=== PATIENT | female | born 2000 | race Caucasian/White ===

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

== ENCOUNTER 2021-02-21 18:26 | Emergency (ER) | payer BC, MEDICAID ==
--- NOTE | 2021-02-21 19:00 | XRAY Report ---
PROCEDURE: Hand 3 View RT INDICATIONS: Trauma TECHNIQUE: 3 views of the hand(s) acquired. COMPARISON: None FINDINGS: Bones: No fractures or dislocations. No suspicious bony lesions. Soft tissues: Generalized soft tissue swelling noted. IMPRESSION: Soft tissue swelling without fracture or foreign body Reviewed by: Samuel Felipe MD on 02/21/2021 5:59 PM AKDT Approved by: Samuel Felipe MD on 02/21/2021 5:59 PM AKDT Station ID: [id number]
[2021-02-21] MEDS: ACETAMINOPHEN 325 MG TABLET PO STA (19:40)
[2021-02-21 19:44] VITALS: BP 124/62
--- NOTE | 2021-02-21 19:58 | ED Physician Documentation ---
PD HPI UPPER EXT INJURY - Stated complaint Stated Complaint: RIGHT HAND INJURY - Chief complaint Chief Complaint: Trauma Ext - History obtained from History obtained from: Patient, Family - History of Present Illness Location: Right, Hand Type of injury: Other (punched a wall.) Timing - duration: Hours (1) Timing - details: Abrupt onset Pain level max: 5 Pain level now: 5 Worsened by: Moving, Palpating Associated symptoms: No: Weakness, Numbness, Tingling Contributing factors: No: Anticoagulated - Additonal information Additional information: 21-year-old female states that she punched a wall today. She is complaining of pain to the right hand, mainly at the fifth metacarpal. States she has swelling and bruising. Patient is right-handed. Worse with movement, better with rest. She has 22 weeks . Denies any other injuries. Review of Systems Constitutional: denies: Fever, Chills GI: denies: Vomiting, Diarrhea : denies: Vaginal bleeding Neurologic: denies: Headache PD PAST MEDICAL HISTORY - Past Medical History Past Medical History: No - Past Surgical History Past Surgical History: No - Present Medications Home Medications: Ambulatory Orders Medication Instructions Recorded Confirmed Pnv No.95/Ferrous Fum/Folic AC 1 each PO DAILY 02/21/21 02/21/21 [ Tablet] - Allergies Allergies/Adverse Reactions: Allergies Allergy/AdvReac Type Severity Reaction Status Date / Time amoxicillin Allergy Rash Verified 02/21/21 18:29 azithromycin [From Zithromax] Allergy Rash Verified 02/21/21 18:29 Penicillins Allergy Rash Verified 02/21/21 18:29 - Social History Does the pt smoke?: No Smoking Status: Never smoker Does the pt drink ETOH?: No Does the pt have substance abuse?: No - Immunizations Immunizations are current?: Yes PD ED PE NORMAL - Vitals Vital signs reviewed: Yes - General General: Alert and oriented X 3, No acute distress - HEENT HEENT: Moist mucous membranes - Cardiac Cardiac: RRR - Respiratory Respiratory: No respiratory distress, Clear bilaterally - Abdomen Abdomen: Soft, Non tender, Other (gravid) - Derm Derm: Warm and dry - Extremities Extremities: Other (Tender to palpation over the right hand, fourth and fifth metacarpals. Mild swelling. Full range of motion. Neurovascular intact. Otherwise normal exam of the hand and wrist) - Neuro Neuro: Alert and oriented X 3 - Psych Psych: Normal mood, Normal affect Results - Vitals Vitals: Oxygen O2 Source Room air - Rads (name of study) Right hand x-ray Radiology: Final report received, EMP read contemporaneously, See rad report (No acute abnormality) PD MEDICAL DECISION MAKING - ED course Complexity details: reviewed results, re-evaluated patient, considered differential, d/w patient ED course: No acute findings on x-ray. Symptoms consistent with a hand contusion. Declines a splint. Her vital signs improved as she calmed herself down in the emergency department. We will have her follow-up with her doctor for further checks. There is no evidence of injury to the fetus at this time. heart rate 150. Patient counseled regarding signs and symptoms for which I believe and urgent re-evaluation would be necessary. Patient with good understanding of and agreement to plan and is comfortable going home at this time This document was made in part using voice recognition software. While efforts are made to proofread this document, sound alike and grammatical errors may occur. Departure - Departure Disposition: 01 Home, Self Care Clinical Impression: Hand contusion Qualifiers: Encounter type: initial encounter Laterality: right Qualified Code(s): S60.221A - Contusion of right hand, initial encounter Condition: Good Instructions: ED Contusion Hand Follow-Up: Provider,Other [Primary Care Provider] - Within 1 week Comments: Ankle he there are no fractures on your x-ray. You can use Tylenol as needed for pain. Return if you worsen. Discharge Date/Time: 02/21/21 20:05
== END 2021-02-21 20:05 | disposition home or self-care (01) ==
LOC: ED 18:26
DX: O9A.212 Injury, poisoning and certain other consequences of external causes complicating pregnancy, second trimester (principal); S60.221A Contusion of right hand, initial encounter; W22.01XA Walked into wall, initial encounter; Z3A.22 22 weeks gestation of pregnancy
CPT/HCPCS: 73130; 99282; 99283; A9270

== ENCOUNTER 2021-07-10 04:49 | Inpatient (IN) | payer BC, MEDICAID ==
[2021-07-10] MEDS ORDERED: TERBUTALINE 1 MG/ML VIAL SUBQ PRN ×2 (04:52→05:46)
[2021-07-10] MEDS ORDERED: fentaNYL 100 MCG/2 ML VIAL IVP PRN ×2 (04:52→05:46)
[2021-07-10] MEDS ORDERED: SODIUM CHLORIDE FLUSH 0.9% 10 ML SYRINGE IVP PRN ×2 (04:52→05:46)
[2021-07-10] MEDS ORDERED: CARBOPROST TROMETHAMINE 250 MCG/ML AMP IM PRN ×2 (04:52→05:46)
[2021-07-10] MEDS ORDERED: LIDOCAINE-MPF 1% 30 ML VIAL ID PRN ×2 (04:52→05:46)
[2021-07-10] MEDS ORDERED: OXYTOCIN/SODIUM CHLORIDE 500 ML IV PRN ×2 (04:52→05:46)
[2021-07-10] MEDS ORDERED: OXYTOCIN 10 UNIT/ML VIAL IM PRN ×2 (04:52→05:46)
[2021-07-10] MEDS ORDERED: METHYLERGONOVINE 0.2 MG/ML VIAL IM PRN ×2 (04:52→05:46)
[2021-07-10] MEDS ORDERED: TRANEXAMIC ACID IN NACL 1,000 MG/100 ML BAG IV PRN ×2 (04:52→05:46)
[2021-07-10] MEDS ORDERED: LACTATED RINGERS 500 ML IV ONE (04:52)
[2021-07-10] MEDS ORDERED: miSOPROStoL 200 MCG TABLET BC ONE (04:52)
[2021-07-10] MEDS ORDERED: miSOPROStoL 200 MCG TABLET PR ONE (04:52)
[2021-07-10] MEDS ORDERED: SODIUM CHLORIDE FLUSH 0.9% 10 ML SYRINGE IVP SCH (05:00)
[2021-07-10] MEDS ORDERED: AMPICILLIN 1 GM in SODIUM CHLORIDE 0.9% MINIBAG 100 ML IV SCH (05:00)
[2021-07-10] MEDS ORDERED: LACTATED RINGERS 1,000 ML IV SCH ×2 (05:00→06:00)
[2021-07-10] MEDS ORDERED: miSOPROStoL 200 MCG TABLET BC PRN (05:46)
[2021-07-10] MEDS ORDERED: miSOPROStoL 200 MCG TABLET PR PRN (05:46)
[2021-07-10] MEDS ORDERED: ONDANSETRON ODT 4 MG TABLET PO PRN (05:46)
[2021-07-10] MEDS ORDERED: METOCLOPRAMIDE 10 MG TABLET PO PRN (05:46)
[2021-07-10] MEDS ORDERED: METOCLOPRAMIDE 10 MG/2 ML VIAL IVP PRN ×2 (05:46→07:07)
[2021-07-10] MEDS ORDERED: LACTATED RINGERS 1,000 ML ONE (05:51)
--- NOTE | 2021-07-10 05:55 | HISTORY & PHYSICAL EXAMINATION ---
Admit History - Visit Reason Visit Reason: Other (Labor and desires pain management) - : 1 Parity: 0 Smoking Status: Never smoker - Mother's Labs Mother's Blood Type: positive: A Mother's RH: positive: Positive GBS: positive: Group B Strep Positive Rubella Status: positive: Non-immune - Other Maternal History Other Maternal History: ID: Patient is a 21 yo at 41+4 wga by 6 week us here as a transfer from [facility]. HPI: Patient reports having painful contractions since 07/07/21. She has becomemore active this morning and progressed to 5/C/-2 per LM exam. has been complicated only by BMI>40 and hx of GAS pharyngitis on 06/15/21. She is GBS positive and reports a history of PCN allergy. She has had one dose of cefazolin prior to transfer. She is having difficulty managing pain and desires epidural. Emotional distress/anxiety. Reports back pain. Records from [facility] showed mildly elevated blood pressures in the 140s/80s Active labor noted at 07/10/21 at 1:07 am. Has had prodromal labor since 07/07/21. COVD testing 06/15/21 for pharyngitis, positive for GAS and treated with clindamycin First OB visit with Dr. Emery 12/24/20 indicated narrow pelvic and possibility of as discussed PNC DATING: LMP unknown US on 11/04/20 at 6w1d gives BÁRBARA 06/29/21 A pos/ Rub NON-IMMUNE Ab neg VZV NON-IMMUNE H/H 14.2/41.9 HIV neg Rub NI RPR NR GENETICS: NIPT 46 XX HbA1c 5.6% TSH 3.40 HepBsAg neg HepC Ab neg GCCT neg/neg FAS posterior, EFW 66%ile, 3VC, FAS wnl glucola 91 GBS positive (No comment on TDAP in records) PMH: depression/anxiety BMI> 40 (270# on 11/28/20, Ht 5'7" PSH: none SOC HX: Lives in [place] with partner Homemaker GED with some college FOB [place] T: vape in early E: prior to D: none FH: Father: 2/2 heart failure; EtOH abuse Mother: Maria T's thyroiditis, GDM, HTN GM: family estrangement GM: addiction PGF: estranged MGF: estranged ROS: As per HPI, otherwise remaining systems are negative PE: VS: 97.9 136 143/85 22 GEN: Marked discomfort with contractions HEENT: NCAT CV: tachycardic RESP: nl effort ABD: Gravid, non-tender PSYCH: high anxiety, emotionally labile NEURO: alert and oriented EFM: 145 mod shraddha 15x15 accels no decels TOCO:Q3-5 min A/P: 21 yo at 41+4 wga here as TAZ from [facility] for pain management PAIN: Desires epidural -Placing IV for fluid bolus and labs -FRUIT DISTRIBUTOR aware and will place LEP once bolus and labs completed FWB: Vertex by LM report, well grown, Cat I tracing. GBS positive -Continuing cefazolin for GBS ppx given PCN allergy GHTN: Mild range blood pressures -Obtaining PIH labs -Treat with severe range pressures -Magnesium for severe features In-patient care Meds/Allgy - Home Medications Home Medications: Ambulatory Orders Medication Instructions Recorded Confirmed Pnv No.95/Ferrous Fum/Folic AC 1 each PO DAILY 02/21/21 02/21/21 [ Tablet] - Allergies Allergies/Adverse Reactions: Allergies Allergy/AdvReac Type Severity Reaction Status Date / Time amoxicillin Allergy Rash Verified 07/10/21 06:14 azithromycin [From Zithromax] Allergy Rash Verified 07/10/21 06:14 Penicillins Allergy Rash Verified 07/10/21 06:14
[2021-07-10] MEDS ORDERED: ceFAZolin 3 GM in SODIUM CHLORIDE 0.9% 100ML 100 ML IV SCH (06:00)
[2021-07-10] MEDS ORDERED: SODIUM CHLORIDE 0.9% IV SCH (06:00)
[2021-07-10] MEDS ORDERED: CEFAZOLIN IV SCH (06:00)
[2021-07-10 06:03] LABS: BASOPHILS % (AUTO) 0.2 %; EOSINOPHILS % (AUTO) 0.2 %; HCT - HEMATOCRIT 37.2 % (37.0-47.0); HGB - HEMOGLOBIN 12.6 g/dL (12.0-16.0); LYMPHOCYTES # (AUTO) 1.7 10^3/uL (1.5-3.5); LYMPHOCYTES % (AUTO) 13.9 %; MEAN CORPUSCULAR HEMOGLOBIN 26.9 pg (27.0-31.0); MEAN CORPUSCULAR HGB CONC 33.9 g/dL (32.0-36.0); MEAN CORPUSCULAR VOLUME 79.5 fL (81.0-99.0); MEAN PLATELET VOLUME 11.1 fL (7.9-10.8); MONOCYTES % (AUTO) 7.9 %; NEUTROPHILS # (AUTO) 9.6 10^3/uL (1.5-6.6); NEUTROPHILS % (AUTO) 77.3 %; PLT - PLATELET COUNT 204 10^3/uL (130-450); RED BLOOD COUNT 4.68 10^6/uL (4.20-5.40); RED CELL DISTRIBUTION WIDTH 13.3 % (12.0-15.0); WHITE BLOOD COUNT 12.4 x10^3/uL (4.8-10.8)
[2021-07-10] MEDS ORDERED: ACETAMINOPHEN 500 MG TABLET PO PRN (06:07)
[2021-07-10] MEDS ORDERED: ROPIVACAINE 0.2% 200 MG/100 ML BAG EP ONE (06:12)
[2021-07-10] MEDS ORDERED: BUPIVACAINE 0.25% PF 10 ML VIAL ONE (06:12)
[2021-07-10] MEDS ORDERED: fentaNYL 100 MCG/2 ML VIAL ONE ×2 (06:12→15:18)
[2021-07-10 06:29] LABS: ALBUMIN 3.2 g/dL (3.2-5.5); ALBUMIN/GLOBULIN RATIO 0.8 (1.0-2.2); BILIRUBIN,TOTAL 0.7 mg/dL (0.2-1.0); CALCIUM 8.9 mg/dL (8.5-10.3); CREATININE 0.6 mg/dL (0.4-1.0); POTASSIUM 3.8 mmol/L (3.5-5.0); TOTAL PROTEIN 7.1 g/dL (6.7-8.2)
[2021-07-10] MEDS ORDERED: NIFEdipine 10 MG CAPSULE PO PRN (06:31)
--- NOTE | 2021-07-10 07:04 | PROVIDER PROGRESS NOTE ---
Subjective - Prog Note Date Prog Note Date: 07/10/21 Prog Note Time: 07:03 - Subjective Subjective: Epidural in place. Patient markedly more calm and comofortable Maternal BP and HR improved Cat I tracing SVE 690/-2 Suspect posterior position Objective - Vital Signs/Intake & Output Vital Signs: Vital Signs x48h Temp Pulse Resp BP 07/10/21 04:52 97.9 F 136 H 22 143/85 H - Lab Results Fish Bones: 07/10/21 05:40 07/10/21 05:48 Other Labs: Lab Results x24hrs 07/10/21 07/10/21 07/10/21 Range/Units 05:48 05:40 05:40 WBC 12.4 H (4.8-10.8) x10^3/uL RBC 4.68 (4.20-5.40) 10^6/uL Hgb 12.6 (12.0-16.0) g/dL Hct 37.2 (37.0-47.0) % MCV 79.5 L (81.0-99.0) fL MCH 26.9 L (27.0-31.0) pg MCHC 33.9 (32.0-36.0) g/dL RDW 13.3 (12.0-15.0) % Plt Count 204 (130-450) 10^3/uL MPV 11.1 H (7.9-10.8) fL Neut # (Auto) 9.6 H (1.5-6.6) 10^3/uL Lymph # (Auto) 1.7 (1.5-3.5) 10^3/uL Benson # (Auto) 1.0 (0.0-1.0) 10^3/uL Eos # (Auto) 0.0 (0.0-0.7) 10^3/uL Baso # (Auto) 0.0 (0.0-0.1) 10^3/uL Absolute Nucleated RBC 0.00 x10^3/uL Nucleated RBC % 0.0 /100WBC Sodium 134 L (135-145) mmol/L Potassium 3.8 (3.5-5.0) mmol/L Chloride 106 (101-111) mmol/L Carbon Dioxide 16 L (21-32) mmol/L Anion Gap 12.0 (6-13) BUN 7 (6-20) mg/dL Creatinine 0.6 (0.4-1.0) mg/dL Estimated GFR (MDRD) 127 (>89) Glucose 90 (70-100) mg/dL Calcium 8.9 (8.5-10.3) mg/dL Total Bilirubin 0.7 (0.2-1.0) mg/dL AST 17 (10-42) IU/L ALT 13 (10-60) IU/L Alkaline Phosphatase 138 H (42-121) IU/L Total Protein 7.1 (6.7-8.2) g/dL Albumin 3.2 (3.2-5.5) g/dL Globulin 3.9 (2.1-4.2) g/dL Albumin/Globulin Ratio 0.8 L (1.0-2.2) Blood Type A POSITIVE Antibody Screen NEGATIVE
[2021-07-10] MEDS ORDERED: ONDANSETRON 4 MG/2 ML VIAL IVP PRN (07:07)
[2021-07-10] MEDS ORDERED: diphenhydrAMINE INJ 50 MG/ML VIAL IVP PRN (07:07)
[2021-07-10] MEDS ORDERED: NALOXONE 0.4 MG/ML VIAL IVP PRN (07:07)
[2021-07-10] MEDS ORDERED: NALBUPHINE 10 MG/ML AMP IVP PRN (07:07)
[2021-07-10] MEDS ORDERED: ePHEDrine 50 MG/ML VIAL IVP PRN (07:07)
--- NOTE | 2021-07-10 07:07 | ANESTHESIA ---
Pre-Anesthesia VS, & Labs - Diagnosis active labor - Procedure labor epidural Vital Signs: Temp Pulse Resp BP Pulse Ox 36.6 C 136 H 22 143/85 H 07/10/21 04:52 07/10/21 04:52 07/10/21 04:52 07/10/21 04:52 Height: 5 ft 7 in Weight (kg): 128.367 kg Body Mass Index: 44.3 BMI Classification: Morbidly Obese - NPO >8 hours - Is Patient ?: Yes - Lab Results Current Lab Results: Laboratory Tests 07/10/21 05:48: Sodium 134 L, Potassium 3.8, Chloride 106, Carbon Dioxide 16 L, Anion Gap 12.0, BUN 7, Creatinine 0.6, Estimated GFR (MDRD) 127, Glucose 90, Sean cium 8.9, Total Bilirubin 0.7, AST 17, ALT 13, Alkaline Phosphatase 138 H, Total Protein 7.1, Albumin 3.2, Globulin 3.9, Albumin/Globulin Ratio 0.8 L 07/10/21 05:40: WBC 12.4 H, RBC 4.68, Hgb 12.6, Hct 37.2, MCV 79.5 L, MCH 26.9 L , MCHC 33.9, RDW 13.3, Plt Count 204, MPV 11.1 H, Neut # (Auto) 9.6 H, Lymph # (Auto) 1.7, Rich # (Auto) 1.0, Eos # (Auto) 0.0, Baso # (Auto) 0.0, Absolute Nucleated RBC 0.00, Nucleated RBC % 0.0 07/10/21 05:40: Blood Type A POSITIVE, Antibody Screen NEGATIVE Lab results reviewed: Yes Fish Bones: 07/10/21 05:40 07/10/21 05:48 Home Medications and Allergies Active Medications Acetaminophen (Acetaminophen 500 Mg Tablet) 1,000 mg PO Q8H PRN PRN Reason: Mild Pain Or Fever>38c(100.4f) Carboprost Tromethamine (Carboprost Tromethamine 250 Mcg/Ml Amp) 250 mcg IM ONCE PRN PRN Reason: Hemorrhage Stop: 07/11/21 05:45 Famotidine (Famotidine 20 Mg/2 Ml Vial) 20 mg IVP DAILY RADHA Fentanyl (Fentanyl 100 Mcg/2 Ml Vial) 50 mcg IVP Q1H PRN PRN Reason: Severe Pain (score 7-10) Oxytocin/Sodium Chloride (Pitocin/Sodium Chloride) 500 mls @ 999 mls/hr IV PRN PRN; Protocol PRN Reason: POST- HEMORR PREVENTION Tranexamic Acid (Tranexamic 1,000 Mg/100ml-Nacl) 1,000 mg in 100 mls @ 600 mls/hr IV Q30M PRN PRN Reason: EBL >1200mL and within 3hr Lactated Ringer's (Lr) 1,000 mls @ 100 mls/hr IV .Q10H RADHA Last Admin: 07/10/21 05:45 Dose: 100 mls/hr Documented by: Cefazolin Sodium 3 gm/ Sodium (Chloride) 100 mls @ 200 mls/hr IV ONCE RADHA Stop: 07/11/21 05:59 Last Admin: 07/10/21 06:39 Dose: 200 mls/hr Documented by: Cefazolin Sodium 1 gm/ Sodium (Chloride) 100 mls @ 200 mls/hr IV Q8H RADHA Labetalol HCl (Labetalol 20 Mg/4 Ml Syringe) 20 mg IVP ONCE PRN PRN Reason: SBP> OR = 160, DPB> OR = 110 Stop: 07/10/21 23:59 Lidocaine HCl (Lidocaine-Mpf 1% 30 Ml Vial) 30 ml ID ONCE PRN PRN Reason: PERINEAL REPAIR Stop: 07/11/21 05:46 Methylergonovine Maleate (Methylergonovine 0.2 Mg/Ml Vial) 0.2 mg IM ONCE PRN PRN Reason: Hemorrhage Stop: 07/11/21 05:45 Metoclopramide HCl (Metoclopramide 10 Mg Tablet) 5 mg PO Q6HR PRN PRN Reason: Nausea / Vomiting Metoclopramide HCl (Metoclopramide 10 Mg/2 Ml Vial) 5 mg IVP Q6HR PRN PRN Reason: Nausea / Vomiting Misoprostol (Misoprostol 200 Mcg Tablet) 600 mcg BC ONCE PRN PRN Reason: PER PHYSICIAN ORDER Stop: 07/11/21 05:45 Misoprostol (Misoprostol 200 Mcg Tablet) 800 mcg TN ONCE PRN PRN Reason: PER PHYSICIAN ORDER Stop: 07/11/21 05:45 Nifedipine (Nifedipine 10 Mg Capsule) 10 mg PO ONCE PRN PRN Reason: SBP> OR =160 OR DBP> OR =110 Stop: 07/10/21 23:59 Ondansetron HCl (Ondansetron Odt 4 Mg Tablet) 4 mg PO Q4HR PRN PRN Reason: Nausea / Vomiting Ondansetron HCl (Ondansetron 4 Mg/2 Ml Vial) 4 mg IVP PRN PRN PRN Reason: Nausea / Vomiting Oxytocin (Oxytocin 10 Unit/Ml Vial) 10 unit IM ONCE PRN PRN Reason: Step One if no IV access. Stop: 07/11/21 05:45 Sodium Chloride (Sodium Chloride Flush 0.9% 10 Ml Syringe) 10 ml IVP PRN PRN PRN Reason: NEEDED PER PROVIDER ORDERS Sodium Chloride (Sodium Chloride Flush 0.9% 10 Ml Syringe) 10 ml IVP Q8H RADHA Terbutaline Sulfate (Terbutaline 1 Mg/Ml Vial) 0.25 mg SUBQ ONCE PRN PRN Reason: Tachystole Stop: 07/11/21 05:45 Pnv No.95/Ferrous Fum/Folic AC [ Tablet] 1 each PO DAILY 02/21/21 Allergies/Adverse Reactions: Allergies Allergy/AdvReac Type Severity Reaction Status Date / Time amoxicillin Allergy Rash Verified 07/10/21 06:14 azithromycin [From Zithromax] Allergy Rash Verified 07/10/21 06:14 Penicillins Allergy Rash Verified 07/10/21 06:14 Anes History & Medical History - Anesthetic History Anesthesia Complications: reports: No previous complications Family history of Anesthesia Complications: Denies Family history of Malignant Hyperthermia: Denies - Medical History Smoking Status: Never smoker - Obstetrical History : 1 Parity: 0 Exam General: Alert, Oriented x3, Cooperative, No acute distress Dental: WNL Mouth Openin Fingerbreadth Neck Mobility: Normal Mallampati classification: I Plan Anesthesia Type: Epidural Consent for Procedure(s) Verified and Reviewed: Yes Code Status: Attempt Resuscitation ASA classification: 3-Severe systemic disease Is this case an emergency?: No
[2021-07-10] MEDS: SODIUM CHLORIDE FLUSH 0.9% 10 ML SYRINGE IVP SCH ×2 (07:53→09:00)
[2021-07-10 07:56] LABS: CREATININE,URINE 248.8 mg/dL; PROTEIN/CREATININE RATIO,URINE 0.3 (<=0.2)
[2021-07-10] MEDS: ONDANSETRON 4 MG/2 ML VIAL IVP PRN ×2 (08:53→15:32)
[2021-07-10] MEDS ORDERED: FAMOTIDINE 20 MG/2 ML VIAL IVP SCH (09:00)
[2021-07-10] MEDS ORDERED: OXYTOCIN/SODIUM CHLORIDE 500 ML IV SCH (14:00)
[2021-07-10] MEDS ORDERED: ceFAZolin 1 GM in SODIUM CHLORIDE 0.9% MINIBAG 100 ML IV SCH (14:00)
[2021-07-10] MEDS ORDERED: ROPIVACAINE 0.2% 200 MG/100 ML BAG EP PRN (14:07)
--- NOTE | 2021-07-10 14:13 | PROVIDER PROGRESS NOTE ---
Labor Progress Note - Uterine Monitoring Uterine Monitoring Mode: positive: IUPC Contraction Frequency (min/apart): 3 to 4 minutes Contraction Intensity: positive: Moderate Uterine Resting Tone: positive: Soft - Monitoring Monitor Mode: positive: External ultrasound Heart Rate Baseline: 145 Heart Rate Variability: positive: Moderate (6-25 bmp) Accelerations: positive: Present, 10x10 (=/32 wks) Decelerations: positive: Early Strip Review: positive: Category I - Vaginal Exam Dilation (in cm): 6 Effacement (%): 90 Station: -2 Cervical Position: Posterior - Labor Progress Note Labor Progress Note/Additional Text: Amniotomy performed due to no cervical change. IUPC was placed, and MVUs were calculated and insufficient, so oxytocin was started. Currently at 2 milliunits/min. We will continue oxytocin augmentation at this time. Continue GBS sepsis prophylaxis. Anticipate spontaneous vaginal delivery.
[2021-07-10] MEDS ORDERED: SODIUM CHLORIDE 0.9% 10 ML VIAL IVP ONE ×3 (15:18→20:15)
[2021-07-10] MEDS ORDERED: LIDOCAINE-PF 2% 10 ML AMP SUBQ ONE ×3 (15:18→20:14)
--- NOTE | 2021-07-10 15:47 | ANESTHESIA PROCEDURE NOTE ---
Anesthesia Epidural Template - Patient Report Patient Reports: positive: Inadequate control - Other Comments Other Comments: Called for air in the line. Patient reports 9/10 pain with contractions. Pump restarted and epidural bolused with 5ml of 2%PF lidocaine, 100mcg fentanyl and 3ml of PF NS. Patient reports contraction pain much improved after bolus.
--- NOTE | 2021-07-10 17:47 | ANESTHESIA PROCEDURE NOTE ---
Anesthesia Epidural Template - Patient Report Patient Reports: positive: Inadequate control - Other Comments Other Comments: Patient uncomfortable with contractions. Epidural bolused with 10ml of 2% lidocaine plus 10ml of PF NS. Reported better pain control after bolus. Epidural rate changed to 10ml q 45mins PIEB.
[2021-07-10] MEDS: LABETALOL 20 MG/4 ML SYRINGE IVP PRN ×2 (18:40→18:54)
[2021-07-10] MEDS ORDERED: MAGNESIUM SULFATE 4 GRAM 4 GM/50 ML BAG IV ONE ×2 (18:40→18:44)
[2021-07-10] MEDS ORDERED: LABETALOL 20 MG/4 ML SYRINGE IVP ONE ×3 (18:50→19:15)
[2021-07-10] MEDS ORDERED: LABETALOL 5 MG/1 ML 20 ML MDV ONE (19:16)
[2021-07-10] MEDS: MAGNESIUM SULFATE IN WATER 20 GM/500 ML IV.SOLN IV SCH (19:45)
[2021-07-10] MEDS ORDERED: BUPIVACAINE 0.5% PF 10 ML VIAL ONE (20:14)
[2021-07-10] MEDS ORDERED: SIMETHICONE CHEW 80 MG TABLET PO PRN (21:18)
--- NOTE | 2021-07-10 21:27 | DELIVERY NOTE ---
Delivery Note - Labor Labor: positive: Augmented by oxytocin - Delivery Method Delivery Method: positive: Vacuum assist - Presentation Presentation: positive: SILAS - right occiput anterior - Nuchal Cord Nuchal Cord: positive: None - Anesthetic Anesthetic Type: - Amniotic Fluid Description Amniotic Fluid Description: positive: Clear (At amniotomy), Thick meconium (At delivery) - Vacuum Use Indication for Vacuum Use: positive: Prolonged 2nd stage, Shortening of 2nd stage for maternal benefit Type of Vacuum Cup: positive: Cup: Rigid Vacuum Extraction: positive: Successful Number of pop-offs: 0 - Episiotomy Type Episiotomy Type: positive: None - Laceration Laceration: positive: 2nd degree, Labial (Bilateral) - Suture Suture Type: positive: Vicryl (2-0), Chromic (3-0) - Delivery Outcome Delivery Outcome: positive: Livebirth - Pryor Pryor: positive: Suctioned, Stimulated, Warmed, [place] used, Warmer used Pryor sex: positive: Female - Cord Cord: positive: 3 vessels - Placenta Placenta: positive: Intact - Estimated Blood Loss Estimated Blood Loss (in cc): 250 - Post Delivery Events Post Delivery Events: positive: No post delivery events - Delivery Comments (Free Text/Narrative) Delivery Comments (Free Text/Narrative): Preoperative Diagnoses 41 weeks gestation Preeclampsia with severe features Term labor Postoperative Diagnoses Same Status post vacuum-assisted vaginal delivery History; Patient was a transfer from [facility] due to labor and desired pain control. She presented at 41 weeks 4 days gestation as a primigravida. She was GBS positive and received cefazolin prior to transfer as well as during her labor process. She did have gestational hypertension this . She was treated for strep pharyngitis on 06/15/2021. She initiated care with Dr. Emery prior to transferring to the [place]. Upon arrival, she was ty in labor on her own. She received an epidural for pain control. At 6 cm she stopped progressing and amniotomy was performed with a small amount of clear fluid. IUPC was placed that time he noted hypotonic uterine contractions and oxytocin was started. She progressed to co mplete and began pushing. Early in the process, she had deep variable decelerations, but these resolved spontaneously. She had a prolonged second stage of labor amd due to maternal exhaustion, was counseled on the vacuum- assisted vaginal delivery versus section. She elected for vacuum- assisted vaginal delivery. Delivery Summary: The patient was counseled on the risk of vacuum delivery. We discussed a trial of vacuum delivery with no significant descent we would proceed with section. We discussed that we would give up if no descent occurred after 2 tractions, if delivery did not occur after 4 tractions or if the vacuum detached more than twice. We discussed the risk of cephalhematoma, hemorrhage, nerve injuries, bruises, elevated bilirubin, as well as maternal issues of soft tissue injuries. We discussed that traction alone cannot deliver the baby, we can only assist maternal pushing efforts. Patient was placed in the dorsal lithotomy position. The posterior fontanelle was palpated, the flexion point was identified 3 cm anterior of the posterior fontanelle, and the vacuum was placed at the flexion point. The pelvis was examined to ensure no maternal tissue was inside the vacuum device. While seated up on a stool, the vacuum suction was initiated with the contraction into the green zone. With the other hand bracing the dome of the cup, gentle traction was applied and the angle of the pelvic axis. Upon maternal pushing the head was delivered followed by the anterior shoulder, posterior shoulder, then the remainder of the infant's body. A female was delivered and due to lack of tone and crying, the umbilical cord was clamped x2 and cut. She was then handed off to Dr. Trinh for further evaluation. APGARS of 2 at 1 minute and 8 at 5 minutes. The placenta delivered intact with three vessel cord. Placenta was not sent to pathology. Thirty units of Pitocin were added to the IV fluid and allowed to run freely. Uterine massage was performed until uterus was deemed firm. Upon inspection of the perineum, bilateral labial lacerations and a second- degree laceration with noted. The labial lacerations were closed with a running suture of 3-0 chromic. The second-degree was closed with a 2-0 Vicryl. This was performed in a running fashion. Upon re-inspection the patient was hemostatic. Uterus again massaged and found to be firm. Needle and sponge counts were correct. Patient was stable and allowed to recover in L&D room. Infant was stable and remained in room with mother. Fetus was examined with no fracture on the vacuum noted. weight is pending at this time.
[2021-07-10] MEDS: ACETAMINOPHEN 500 MG TABLET PO SCH (22:00)
[2021-07-10] MEDS: IBUPROFEN 600 MG TABLET PO SCH (22:01)
[2021-07-10] MEDS: LACTATED RINGERS 1,000 ML IV SCH (23:49)
[2021-07-11] MEDS: IBUPROFEN 600 MG TABLET PO SCH ×4 (03:58→21:55)
[2021-07-11] MEDS: ACETAMINOPHEN 500 MG TABLET PO SCH ×3 (05:30→20:33)
[2021-07-11] MEDS: MAGNESIUM SULFATE IN WATER 20 GM/500 ML IV.SOLN IV SCH ×2 (05:32→17:17)
[2021-07-11] MEDS: DOCUSATE SODIUM 100 MG CAPSULE PO PRN ×2 (07:57→20:34)
[2021-07-11] MEDS: LACTATED RINGERS 1,000 ML IV SCH (14:28)
--- NOTE | 2021-07-11 16:39 | PROVIDER PROGRESS NOTE ---
Subjective - Prog Note Date Prog Note Date: 07/11/21 - Subjective Pt reports feeling: Improved Subjective: Subjective Patient reports she is doing well. No headaches, change in vision, right upper quadrant pain. Lochia appropriate. Denies heavy bleeding. Ambulating. Pelvic and abdominal pain well-controlled. Tolerating oral intake. Diet: Regular. Voiding without difficulty. Passing flatus. Denies BM. Patient is bonding with baby in room Breast feeding going well. Denies feeling lightheaded, dizzy or excessively fatigued. Objective General: Alert, oriented, no apparent distress. Cardiovascular: Regular rate. Regular rhythm. Lungs: No increased work of breathing. Clear to auscultation bilaterally Extremities: 2+ DTR, no clonus. Abdomen: Uterus firm. Below umbilicus. No guarding or rebound. Assessment and Plan day 1. -Status post vacuum-assisted vaginal delivery -Routine care -Anticipate discharge tomorrow Preeclampsia with severe features -Magnesium sulfate continued for 24 hours . Will discontinue tonight -Blood pressures have remained within goal -Magnesium level patient become symptomatic -Plan to repeat CBC/CMP tonight Objective - Vital Signs/Intake & Output Vital Signs: Vital Signs x48h Temp Pulse Resp BP Pulse Ox 07/11/21 16:21 97.7 F 95 20 142/64 H 98 07/11/21 15:12 97.5 F L 94 18 135/59 H 100 07/11/21 13:02 98.2 F 88 16 119/62 99 07/11/21 10:00 97.7 F 96 16 133/78 H 100 Intake & Output: Intake & Output 07/08/21 07/09/21 07/10/21 07/11/21 23:59 23:59 23:59 23:59 Intake Total 1450 2555.417 Output Total 615 1500 Balance 835 1055.417 - Lab Results Fish Bones: 07/10/21 05:40 07/10/21 05:48 Other Labs: Lab Results x24hrs 07/10/21 Range/Units 05:40 Blood Type A POSITIVE Antibody Screen NEGATIVE Crossmatch IS Only See Detail
[2021-07-11 18:03] LABS: BASOPHILS % (AUTO) 0.2 %; EOSINOPHILS # (AUTO) 0.1 10^3/uL (0.0-0.7); EOSINOPHILS % (AUTO) 0.7 %; HCT - HEMATOCRIT 29.8 % (37.0-47.0); HGB - HEMOGLOBIN 9.9 g/dL (12.0-16.0); LYMPHOCYTES # (AUTO) 1.9 10^3/uL (1.5-3.5); LYMPHOCYTES % (AUTO) 14.7 %; MEAN CORPUSCULAR HEMOGLOBIN 26.5 pg (27.0-31.0); MEAN CORPUSCULAR HGB CONC 33.2 g/dL (32.0-36.0); MEAN CORPUSCULAR VOLUME 79.9 fL (81.0-99.0); MEAN PLATELET VOLUME 10.9 fL (7.9-10.8); MONOCYTES # (AUTO) 1.1 10^3/uL (0.0-1.0); MONOCYTES % (AUTO) 8.3 %; NEUTROPHILS % (AUTO) 75.6 %; PLT - PLATELET COUNT 182 10^3/uL (130-450); RED BLOOD COUNT 3.73 10^6/uL (4.20-5.40); RED CELL DISTRIBUTION WIDTH 13.8 % (12.0-15.0); WHITE BLOOD COUNT 13.2 x10^3/uL (4.8-10.8)
[2021-07-11 18:16] LABS: ALBUMIN 2.4 g/dL (3.2-5.5); ALBUMIN/GLOBULIN RATIO 0.8 (1.0-2.2); BILIRUBIN,TOTAL 0.4 mg/dL (0.2-1.0); CALCIUM 7.5 mg/dL (8.5-10.3); CREATININE 0.7 mg/dL (0.4-1.0); POTASSIUM 3.7 mmol/L (3.5-5.0); TOTAL PROTEIN 5.5 g/dL (6.7-8.2)
[2021-07-12] MEDS: ACETAMINOPHEN 500 MG TABLET PO SCH ×2 (04:58→13:03)
[2021-07-12] MEDS: IBUPROFEN 600 MG TABLET PO SCH ×2 (04:59→11:09)
--- NOTE | 2021-07-12 06:22 | Discharge Plan ---
Discharge Plan Problem Reviewed?: Yes Disposition: Home, Self Care Condition: Good Diet: Regular Instruction Topics: Vaginal After No Smoking: If you smoke, Please STOP! Call for help. Follow-up with: Gerardo Julian MD [Provider Admit Priv/Credential] -
--- NOTE | 2021-07-12 06:31 | DISCHARGE SUMMARY ---
Discharge Summary Admit Date: 07/10/21 Discharge Date: 07/12/21 Discharging Provider: Gerardo Julian MD Code Status: Attempt Resuscitation Condition at Discharge: Good Discharge Disposition: 01 Home, Self Care - DIAGNOSES Admission Diagnoses: 41 weeks gestation Term labor Gestational hypertension GBS positive Discharge Diagnoses with Status of Each Condition: 41 weeks gestation Term labor GBS positive Preeclampsia with severe features Status post vacuum-assisted vaginal delivery - HPI History of Present Illness: Subjective Patient reports she is doing well. Lochia appropriate. Denies heavy bleeding. Ambulating. Pelvic and abdominal pain well-controlled. Tolerating oral intake. Diet: Regular. Voiding without difficulty. Passing flatus. Denies BM. Patient is bonding with baby in room Breast feeding going well. Denies feeling lightheaded, dizzy or excessively fatigued. Objective Temp Pulse Resp BP Pulse Ox 97.7 F 83 18 125/58 L 99 07/12/21 02:00 07/12/21 02:00 07/12/21 02:00 07/12/21 02:00 07/11/21 23:48 General: Alert, oriented, no apparent distress. Cardiovascular: Regular rate. Regular rhythm. Lungs: No increased work of breathing. Abdomen: Uterus firm. Below umbilicus. No guarding or rebound. - HOSPITAL COURSE Hospital Course: Patient was a 21-year-old G1, P0 who is admitted at 41 weeks 4 days gestation for term labor as a transfer from [facility]. She desired pain control due to long prodromal labor. She was admitted and noted to have gestational hypertension. She was also treated with cefazolin due to GBS colonization and a penicillin allergy. Early in labor, she had normal platelets and transaminases, however she had an elevated urine protein to creatinine ratio and is diagnosed with preeclampsia without severe features. She progressed on her own to 6 cm, but after stopping making progress, amniotomy was performed with a small amount of clear fluid. While still not making change, and IUPC was placed and subsequently oxytocin was started for hypotonic uterine contractions. She continued to progress until complete with continued difficulty for pain c ontrol. While pushing, she had a prolonged second stage and due to the length of her second stage as well as maternal exhaustion, was offered vacuum assistance. Also during her pushing, patient progressed from gestational hypertension to severe range blood pressures and was started on magnesium mart lfate for preeclampsia with severe features as well as several doses of labetalol for blood pressure control. She had a vacuum-assisted vaginal delivery of a female that was large for gestational age at 4227 g. Her course was unremarkable and had normal blood pressures after del leonard. She received magnesium sulfate for 24 hours after delivery. Patient and were discharged on postoperative day 1. - ALLERGIES Allergies/Adverse Reactions: Allergies Allergy/AdvReac Type Severity Reaction Status Date / Time amoxicillin Allergy Rash Verified 07/10/21 06:14 azithromycin [From Zithromax] Allergy Rash Verified 07/10/21 06:14 Penicillins Allergy Rash Verified 07/10/21 06:14 - MEDICATIONS Home Medications: Ambulatory Orders Medication Instructions Recorded Confirmed Pnv No.95/Ferrous Fum/Folic AC 1 each PO DAILY 02/21/21 02/21/21 [ Tablet] Acetaminophen [Acetaminophen Extra 1,000 mg PO Q8H PRN #60 tablet 07/12/21 Strength] Docusate Sodium 100Mg Capsule 100 - 200 mg PO BID PRN #60 cap 07/12/21 [Colace 100Mg Capsule] Ibuprofen [Motrin] 600 mg PO Q6H PRN #30 tab 07/12/21 - LABS Result Diagrams: 07/11/21 18:00 07/11/21 18:00 - FOLLOW UP Follow Up: Follow-up with Gerardo Julian MD in 1 week for exam and blood pressure check. - TIME SPENT Time Spent in Discharge (Minutes): 30
[2021-07-12] MEDS: DOCUSATE SODIUM 100 MG CAPSULE PO PRN (08:38)
[2021-07-12 16:11] VITALS: BP 146/86
--- NOTE | 2021-07-12 16:43 | Labor Flowsheet ---
Labor Flowsheet Datetime Report Generated by CPN: 07/12/2021 16:43 Datetime: 07/12/2021 16:00 VITAL SIGNS NBP Sys/Serena/Mean (mmHg): 146 : 86 : 99 Pulse: 103 SpO2 (%): 99 LaborFlag: Labor Datetime: 07/11/2021 05:30 Stage of : Labor Datetime: 07/10/2021 21:46 Respirations: 20 Temperature (C): 36.8 Datetime: 07/10/2021 20:38 Stage 2 Comments: placenta del intact per Dr. Eliel Datetime: 07/10/2021 20:37 Comments: skin to skin Datetime: 07/10/2021 20:30 Vaginal Exam Comments: head 2030 Datetime: 07/10/2021 20:29 Vacuum: Off Datetime: 07/10/2021 20:26 FHR Baseline Rate : 142 Datetime: 07/10/2021 20:25 Membranes Ruptured Date/Time: 07/10/2021 12:00 Station Vacuum/Forceps Applied: +2 Datetime: 07/10/2021 20:22 STAGE 2 Pushing: Coached on Pushing; Urge to Push Pushing Position: Pushing with Contractions Pushing Progress: Descent with Pushing Datetime: 07/10/2021 20:13 UTERINE ACTIVITY Monitor Mode: Palpation Frequency (min): 3-4 Quality: Strong Duration (sec): 80-90 Pattern: Normal: <= 5 Contractions in 10 Minutes Resting Tone (Palpate): Relaxed ASSESSMENT A Monitor Mode: External US FHR Baseline Changes: No Baseline Change Variability: Moderate 6-25 bpm Accelerations: 15X15 Decelerations: Variable Category: Category I Datetime: 07/10/2021 19:59 Contraction Comments: pushing with knees together Datetime: 07/10/2021 19:56 Monitor Interventions for UA: [place] Adjusted Datetime: 07/10/2021 19:42 Temperature Route: Oral Datetime: 07/10/2021 19:40 Anesthesia Comments: call to SENIOR ELECTRONICS TECHNICIAN to bolus epidural Datetime: 07/10/2021 19:35 Magnesium/Antihypertensives: Magnesium Sulfate IV (Gm/hr) @ 2mg Datetime: 07/10/2021 19:25 Patient Position/Activity: Left Lateral Patient Care Comments: positioned to push (Annotations: pt tolerated position change pt is cooperat daniel) Datetime: 07/10/2021 19:15 Medication Comments: Labetalol 80mg IVP per MD Datetime: 07/10/2021 17:54 PATIENT CARE IV/Blood Work: IV Bolus Started Datetime: 07/10/2021 17:50 COMMUNICATION Communication: Provider at Bedside Datetime: 07/10/2021 17:34 Communication Comments: FIBER TECHNOLOGIST asked to call MD Datetime: 07/10/2021 17:20 [place] Units (mmHg): 235 VAGINAL EXAM Dilatation (cm): 10.0 Effacement (%): 100 Station: 0 Exam by: c. gambs Datetime: 07/10/2021 16:52 Epidural Procedure Other: Redose Datetime: 07/10/2021 16:40 MEDICATIONS Pitocin (milliunits): Discontinued Datetime: 07/10/2021 16:15 Pain Coping: Requesting Pain Medication or Epidural; Crying Comfort Measures: Coaching; Family Support Datetime: 07/10/2021 16:05 Monitor Interventions for FHR: Ultrasound Adjusted Datetime: 07/10/2021 16:01 Antibiotics: Ancef IV (Gm) @ 1 Datetime: 07/10/2021 15:39 Nausea/Vomiting: Present Datetime: 07/10/2021 15:33 PAIN Pain Scale: 5 Datetime: 07/10/2021 15:32 Antiemetics/Antacids: Zofran (mg) @ 4mg Datetime: 07/10/2021 14:30 Pitocin Checklist: At Least 1 Acceleration of 15 bpm x 15 Seconds in 30 Minutes or Adequate Variabi lity; No More than 1 Late Deceleration Occurred in Past 30 Minutes; No More than 2 Variable Decelerat ions > 60 Seconds in Duration and decreasing >60 bpm in 30 minutes; No More than 5 Uterine Contractio ns in 10 Minutes for any 20 Minute Interval; Uterus Palpates Soft between Contractions Datetime: 07/10/2021 13:45 Hygiene: Zandra Care; Underpad Changed; Peripad Changed; Linens Changed I/O Interventions: Clear Liquids Given Datetime: 07/10/2021 13:40 Pain Presence: Intermittent Pain Type: Cramping Pain Location: Right Groin; Right Hip Pain Assessment Comments: right abd. Datetime: 07/10/2021 12:02 Membrane Status: Ruptured Membranes Rupture Method: Artificial Amniotic Fluid Color: Clear Amniotic Fluid Amount: Small Vaginal Bleeding: Normal Show Cervix, Consistency: Soft Cervix, Position: Midposition Datetime: 07/10/2021 11:10 Anesthesia Level Check: T10- Umbilicus Datetime: 07/10/2021 07:25 MATERNAL ASSESSMENT Level of Consciousness: Alert DTR's/Clonus: DTRs 1+; No Clonus Headache: Denies Breath Sounds, Left: Clear and Equal Breath Sounds, Right: Clear and Equal RUQ Epigastric Pain: Denies ANESTHESIA Anesthesia Plans: Epidural TEACHING Instructional Method: Verbal Plan of Care: Plan of Care Discussed; Vaginal Delivery; C/S Delivery; Labor Labor/Induction: Labor Stages Pain Management: Epidural Medications: Antibiotics Related: Common Discomforts of ; Activity and Rest Datetime: 07/10/2021 07:15 Oxygen Method: Room Air Datetime: 07/10/2021 06:46 Provider Reviewed Strip: Yes Datetime: 07/10/2021 06:36 Epidural Procedure: Test Dose Datetime: 07/10/2021 06:14 PROCEDURE TIME OUT Procedure Verify: Correct Patient Identity; Correct Side and Site are Marked; Accurate Procedure Co nsent Form; Agreement on Procedure to be Done; Correct Patient Position; Relevant Images and Results are Properly Labeled and Displayed; Addressed Need to Administer Antibiotics or Fluids for Irrigation ; Safety Precautions Based on Patient History or Medication Use Datetime: 07/10/2021 06:13 Epidural Positioning: Sitting Datetime: 07/10/2021 05:51 Unit Routine: Golden to Room; Call Ross; Visiting Policy; Monitoring; Safety/Fall Risk Preven tion
--- NOTE | 2021-07-12 17:35 | ANESTHESIA PROCEDURE NOTE ---
Anesthesia Epidural Template - Patient Report Patient Reports: positive: Inadequate control - Other Comments Other Comments: Patient reporting pain in perineum area. Epidural dosed with 3ml of 0.5% bupivicaine, 3ml of 2% lidocaine and 4ml of PF NS. Patient reports improved pain control. Remained at bedside for vacuum assisted delivery.
== END 2021-07-12 16:00 | disposition home or self-care (01) | DRG 807 ==
LOC: FBP 04:49 → WFO 04:49 → FBP 04:52
PROVIDERS: ADMIT Obstetrics & Gynecology; ATTEND Obstetrics & Gynecology
PROC: 10D07Z6 Extraction of Products of Conception, Vacuum, Via Natural or Artificial Opening (ICD-10-PCS; principal; 2021-07-10)
PROC: 0KQM0ZZ Repair Perineum Muscle, Open Approach (ICD-10-PCS; 2021-07-10)
PROC: 10H07YZ Insertion of Other Device into Products of Conception, Via Natural or Artificial Opening (ICD-10-PCS; 2021-07-10)
PROC: 10907ZC Drainage of Amniotic Fluid, Therapeutic from Products of Conception, Via Natural or Artificial Opening (ICD-10-PCS; 2021-07-10)
PROC: 0UQMXZZ Repair Vulva, External Approach (ICD-10-PCS; 2021-07-10)
DX: O14.14 Severe pre-eclampsia complicating childbirth (principal); Z37.0 Single live birth; O48.0 Post-term pregnancy; Z3A.41 41 weeks gestation of pregnancy; O99.824 Streptococcus B carrier state complicating childbirth; O99.344 Other mental disorders complicating childbirth; F41.9 Anxiety disorder, unspecified; O63.1 Prolonged second stage (of labor); O77.0 Labor and delivery complicated by meconium in amniotic fluid; O70.1 Second degree perineal laceration during delivery; O75.81 Maternal exhaustion complicating labor and delivery; O76 Abnormality in fetal heart rate and rhythm complicating labor and delivery; Z82.49 Family history of ischemic heart disease and other diseases of the circulatory system; Z88.0 Allergy status to penicillin; Z88.1 Allergy status to other antibiotic agents
CPT/HCPCS: 36415; 80053; 82570; 84156; 85025; 86850; 86900; 86901; 86920; A9270; J7120; J3475